=== PATIENT | female | born 1975 | race Hispanic/Latino ===

== ENCOUNTER 2021-07-01 13:09 | Outpatient (CLI) | payer BC, SELFPAY ==
--- NOTE | ~2021-07-01 | XR_ITS ---
XR thoracic spine 3V 07/01/2021 14:01 Indication: Back pain Procedure: 3 views thoracic spine Comparison: No prior studies for comparison. Findings: No fracture, subluxation or dislocation. Normal thoracic alignment. No paraspinal soft tiss ue abnormality. Pedicles intact. There is mild multilevel spondylosis. Impression: 1: Mild thoracic spondylosis. Reviewed, dictated and finalized at location A. Impression: 1: Mild thoracic spondylosis.
--- NOTE | ~2021-07-01 | XR_ITS ---
XR cervical spine 4-5V INDICATION: Neck pain TECHNIQUE: 5 views of the cervical spine. FINDINGS: No prior studies for comparison. The cervical spine is visualized to the cervicothoracic junction. There is no prevertebral soft tiss ue swelling, listhesis, or loss of vertebral body height. Intervertebral disc spaces are normal. Th e osseous central canal is patent. No displaced cervical spine fractures are identified. IMPRESSION: 1. No acute osseous abnormality of the cervical spine. Reviewed, dictated and finalized at location A.
--- NOTE | ~2021-07-01 | XR_ITS ---
XR lumbar spine 2-3V 07/01/2021 14:01 Indication: Back pain Procedure: 3 views lumbar spine Comparison: No prior studies for comparison. Findings: No fracture, subluxation or dislocation. Vertebral body heights are maintained. No evidence for spondylolysis or spondylolisthesis. There is mild lower lumbar facet perch atrophy. Sacral davis en are symmetric. Impression: 1: Mild thoracic spondylosis. Reviewed, dictated and finalized at location A. Impression: 1: Mild thoracic spondylosis.
== END 2021-07-01 13:10 | disposition home or self-care (01) ==
LOC: ANHIMG 13:15
PROVIDERS: PCP Family Medicine; Visit Provider Family Medicine
DX: M54.2 Cervicalgia (principal); M54.50 Low back pain, unspecified; M47.894 Other spondylosis, thoracic region
CPT/HCPCS: 72050; 72072; 72100

== ENCOUNTER → 2021-10-09 07:28 | Outpatient (CLI) | payer BC, SELFPAY ==
--- NOTE | ~2021-10-09 | XR_ITS ---
EXAMINATION: XR ankle RT min 3V, XR foot RT min 3V EXAM DATE: 10/09/2021 08:02 INDICATION: Right foot pain , right ankle pain. h/o fall on Sep 29, c/o initial foot and ankle swelli ng on dorsal foot, med and lat ankle, it has gotten better but pt still has some pain and swelling on dorsal foot and lat ankle, pain radiates up to mid lower leg, h/o lat foot fracture 20 yrs ago. TECHNIQUE: Right foot dorsoplantar, lateral and oblique projections obtained and reviewed. Right ank le frontal, lateral and oblique projections obtained and reviewed. There is no prior study for gonzalo aviles. FINDINGS: There is acute appearing right 5th metatarsal neck fracture without callus formation. This is essentially nondisplaced and in near-anatomic alignment. The right ankle mortise appears intact. Small calcaneal spur posteriorly. Mild midfoot osteoarthritis. IMPRESSION: Acute right 5th metatarsal neck fracture. Unremarkable ankle. I discussed fracture with nurse Sprague in the office of the ordering clinician Nedra Foster, COMPRESSOR ASSEMBLER at 10/09/2021 10:38 PLANT OPERATIONS MANAGER. Reviewed, dictated and finalized at location A. T OPERATIONS MANAGER IMPRESSION: Acute right 5th metatarsal neck fracture. Unremarkable ankle. I discussed fracture with nurse Sprague in the office of the ordering clinician Jacinta Foster, COMPRESSOR ASSEMBLER at 10/09/2021 10:38 PLANT OPERATIONS MANAGER.
== END ==
PROVIDERS: PCP Nurse Practitioner Family; Visit Provider Nurse Practitioner Family
DX: M79.671 Pain in right foot (principal); S92.351A Displaced fracture of fifth metatarsal bone, right foot, initial encounter for closed fracture
CPT/HCPCS: 73610; 73630

== ENCOUNTER → 2021-11-09 08:30 | Outpatient (CLI) | payer BC, SELFPAY ==
--- NOTE | ~2021-11-09 | XR_ITS ---
XR foot RT standing 2V DATE: 11/09/2021 09:18 INDICATION: Right foot fracture TECHNIQUE: Standing AP and lateral views COMPARISON: 10/09/2021 right foot FINDINGS: There is healed mild fracture deformity at the neck of the fifth metatarsal bone. 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 Posterior calcaneal enthesopathy. IMPRESSION: Healed fracture and neck of fifth metatarsal bone Tarsal coalition Posterior calcaneal enthesopathy Reviewed, dictated and finalized at location A. ORATIVE ART EMBALMER
== END ==
DX: S92.901D Unspecified fracture of right foot, subsequent encounter for fracture with routine healing (principal)
CPT/HCPCS: 73620

== ENCOUNTER 2022-01-09 12:20 | Outpatient (CLI) | payer BC, SELFPAY ==
--- NOTE | 2022-01-09 12:30 | ECG_ITS ---
Measurements Intervals Howe Rate: 82 P: 34 WV: 143 QRS: 13 QRSD: 93 T: 50 QT: 397 QTc: 465 Interpretive Statements SINUS RHYTHM NORMAL ECG INTERPRETATION BASED ON A DEFAULT AGE OF 40 YEARS NO PREVIOUS ECG AVAILABLE FOR COMPARISON Electronically Signed On 01-10-2022 15:43:27 CDT by Blayne Bhakta M.D.
[2022-01-09 12:51] LABS: Basophils Absolute Auto 0.1 K/mm3 (0.0-0.1); Basophils Percent Auto 0.6 % (0.2-1.2); Eosinophils Absolute Auto 0.8 K/mm3 (0-0.3); Hemoglobin 12.3 g/dL (12.0-15.0); Immature Granulocyte Absolute 0.01 K/mm3 (0.00-0.031); Immature Granulocyte Percent A 0.1 % (0-0.5); Lymphocytes Absolute Auto 2.27 K/mm3 (0.9-3.2); Lymphocytes Percent Auto 29.2 % (18.3-44.2); Mean Corpuscular HGB Conc 32.4 g/dl (32-36); Mean Corpuscular Hemoglobin 27.3 pg (26-34); Mean Corpuscular Volume 84.4 fl (80-100); Mean Platelet Volume 9.2 fl (7.4-10.4); Monocytes Absolute Auto 0.9 K/mm3 (0.1-0.6); Monocytes Percent Auto 11.6 % (2.6-8.5); Neutrophils Absolute Auto 3.8 K/mm3 (1.3-6.7); Neutrophils Percent Auto 48.5 % (45.5-73.1); Platelet Count Result 238 k/mm3 (150-375); White Blood Count 7.8 K/mm3 (4.5-10.0)
== END 2022-01-09 12:21 | disposition home or self-care (01) ==
LOC: ANHSURGERY 12:24
PROVIDERS: PCP Pediatrics; Visit Provider Obstetrics & Gynecology
DX: Z01.818 Encounter for other preprocedural examination (principal); D21.9 Benign neoplasm of connective and other soft tissue, unspecified; I10 Essential (primary) hypertension
CPT/HCPCS: 36415; 85025; 86850; 86900; 86901; 93005

== ENCOUNTER 2022-01-12 01:00 | Day surgery (SDC) | payer BC, SELFPAY ==
[2022-01-08 13:09] VITALS: BMI 39.1
--- NOTE | 2022-01-08 13:32 | PC.NURSE ---
Report to the Outpatient Waiting Room, entrance under the green pavilion located off [facility], at time _0600_ on date _01/12/22_. OR Time: _0730_. - You and your visitor will be asked a series of questions to screen for COVID 19 for your protection. - A mask is required within the hospital. One visitor will be allowed to accompany the patient into the hospital. Patients visitor will be instructed to remain with patient at all times or leave the building. VISITING HOURS 10AM-8PM Preoperative COVID Testing Requirements: NONE Patients may have clear liquids (water, carbonated beverages, clear teas, apple juice) until 3 hours prior to surgery (0430 AM) with a maximum of 20 ounces. - No food from midnight until time of surgery Take the following medications with a SIP of water the morning of surgery: __NONE__ Medications to discontinue per physician __NONE_, Date to take last dose Please no make-up, nail syriac, hairspray, perfume, deodorant, or body powder the day of surgery. No jewelry (including any body piercings) or valuables the day of surgery, leave them at home. Please take a shower or bath the night before, or the morning of, surgery with an antibacterial soap. Wear comfortable, loose fitting clothing. - Jewelry must be removed prior to entering the operating room. Rings and piercings that are not removed may be cut off. - The hospital will not accept responsibility for valuables. - Please leave all valuables, including medications, at home the day of surgery. If you are going home after surgery, a licensed otr flatbed driver must drive you home. - NO public transportation without another adult. - We recommend that an adult stay with you for 24 hours following discharge. - We also recommend that you do not drive, make important decision, drink alcoholic beverages, or take any drugs that were not prescribed by your health care provider for at least 24 hours after your discharge time. Follow any additional instructions given to you from your surgeon. Telephone instructions given to ____PT and asked if any additional questions and then verbalized understanding. Patient advised to call surgeon office or pre surgery nurse liaison [phone] if any additional questions.
--- NOTE | 2022-01-09 07:53 | PM.IMHP ---
H&P: HPI History of Present Illness Date/Time: 01/09/22 07:53 46-year-old female 3 para 3 admitted for robotic total vaginal hysterectomy salpingectomy she has heavy periods with known enlarged fibroid uterus ultrasound proved this to be the case risks of this procedure including but not exclusive of , aspiration pneumonia, bleeding, transfusion, perforation injury to bowel, bladder, ureters other internal. She received the [employer] handout entitled hysterectomy as well as the de Roxanne handout. She had questions answered asked to proceed Chief Complaint: Enlarged uterus with pelvic pain Review of Systems Review of Systems: All systems reviewed & are unremarkable except as noted in HPI and below PMFSH Family History Family History Mother Acute myocardial infarction Other Family history of allergic disorder Family history of malignant neoplasm Hypertension Social History Social History Smoking status: Never smoker Second hand tobacco smoke exposure: No Alcohol intake: current Alcohol use details: STATES VERY RARE - [place] Substance use: never Substance use type: does not use Spiritual care concerns: No Meds Home Medications and Allergies Home Medications Medication Instructions Recorded Confirmed Type amoxicillin 875 mg PO Q12H 01/08/22 01/08/22 History lisinopril 10 mg HS 01/08/22 01/08/22 History montelukast 10 mg PO HS 01/08/22 01/08/22 History Allergies Allergy/AdvReac Type Severity Reaction Status Date / Time No Known Allergies Allergy Unverified 01/08/22 13:05 Exam Const: General: no acute distress Eyes: General: appearance normal, both eyes and all related structures Neck: Neck: supple and no JVD Thyroid: thyroid normal Resp: Effort & Inspection: normal respiratory effort Auscultation: clear to auscultation bilaterally Cardio: Rate: regular rate Rhythm: regular rhythm GI: Inspection: non-distended GI Palp: Yes Soft to palpation, No Tenderness to palpation present (GI) and No Guarding due to palpation present (GI) Auscultation: normal bowel sounds : External Female Exam: normal external appearance Speculum Exam - Vagina: normal appearance of the vagina Speculum Exam - Cervix: normal appearance of the cervix Bimanual exam- vagina & uterus: enlarged Bimanual Exam- Adnexa, other: normal adnexae Skin: General skin exam: no rashes or lesions noted Extrem: General: normal to inspection and no edema Psych: Mental Status: mental status grossly normal Affect: normal affect Assessment and Plan Additional Plan Impression: Uterine fibroids pelvic pain Plan: Robotic total vaginal hysterectomy and bilateral salpingectomy
[2022-01-12] VITALS (10 sets, daily range): BP systolic 107–137; BP diastolic 69–99; PULSE 61–98; RESP 12–20; TEMP 36.4–36.8; O2SAT 97–100; BMI 38.9
[2022-01-12] MEDS: KETOROLAC 15 MG/ML VIAL (*BKC) IV PUSH (07:00)
[2022-01-12] MEDS: LACTATED RINGERS 1,000 ML 30 ML IV CONT ×2 (07:00→08:56)
[2022-01-12] MEDS: ACETAMINOPHEN 500 MG TABLET 1000 MG PO (07:00)
--- NOTE | 2022-01-12 07:08 | WPDHPUPDATE1 ---
History and Physical Update Update Date/Time: 01/12/22 07:08 History and Physical has been reviewed, including an updated exam of the patient. There are NO changes in the patient's condition. Risks, benefits, and alternatives have been discussed and questions answered. Patient agrees to proceed with procedure.
--- NOTE | 2022-01-12 07:14 | WPDANESEPPF ---
Anes - Initial Pre Proc Eval Procedure: Operation Date: 01/12/22 07:30 Proposed Procedures p Robotic Assisted Total Vaginal Hysterectomy with Bilateral Salpingectomy - Wisam Lo MD Date/Time: 01/12/22 07:14 Surgeon: Wisam Lo MD Pre Op Diagnosis: fibroids, pain, heavy bleeding Patient Data Age: 46 Gender: F Height: 1.52 m Weight: 90.9 kg Allergies Allergy/AdvReac Type Severity Reaction Status Date / Time No Known Allergies Allergy Verified 01/12/22 06:44 Home Medications Medication Instructions Recorded Confirmed Type amoxicillin 875 mg PO Q12H 01/08/22 01/08/22 History lisinopril 10 mg HS 01/08/22 01/08/22 History montelukast 10 mg PO HS 01/08/22 01/08/22 History hydrocodone-acetaminophen 1 tablet PO Q4H PRN #30 tablet 01/12/22 Rx Patient hx anesthesia problems: none Family hx anesthesia problems: none Results Review: All pre-operative results and documents have been reviewed as part of the pre-operative evaluation. [facility] Past Medical History Medical History (Updated 01/12/22 @ 07:14 by iWsam Meier MD) HTN (hypertension) Morbid obesity Family History Family History Mother Acute myocardial infarction Other Family history of allergic disorder Family history of malignant neoplasm Hypertension Social History Social History Smoking status: Never smoker Second hand tobacco smoke exposure: No Alcohol intake: current Alcohol use details: STATES VERY RARE - [place] Substance use: never Substance use type: does not use Living arrangements: with family Spiritual care concerns: No Anes - Eval Final PreProcedure Day of Procedure 01/12/22 07:14 Patient weight: morbidly obese Heart: regular rate and rhythm Lungs: clear to auscultation Airway: Mallampati scale class II Neurological: alert and oriented Last oral intake: >/= 8 hours ASA classification: III Emergent: no Anesthetic plan: proceed Anesthesia type and monitoring: general GIVS and standard monitoring Results Review: All pre-operative results and documents have been reviewed as part of the pre-operative evaluation. Informed Consent: The patient's anesthetic plan and its attendant risks and benefits were discussed with the patient/family/POA. Questions were solicited and answers provided to the satisfaction of the patient/family/POA.
[2022-01-12] MEDS: ceFAZolin 2 GM/D5W 50 ML 2 GM/50 ML BAG IVPB (07:26)
--- NOTE | 2022-01-12 08:43 | W.PM.PROC2 ---
Procedure Note - Detailed Date of Procedure 01/12/22 Pre-op Diagnosis fibroids, pain, heavy bleeding Post-op Diagnosis Same Procedure Performed Robotic total vaginal hysterectomy and bilateral salpingectomies Surgeon Wisam Lo MD Anesthesia General Indications is a 46-year-old female with symptomatic uterine fibroids Findings markedly enlarged uterus. Normal-appearing ovaries with a small simple ovarian cyst on the left. Description of Procedure The patient is prepped draped in normal sterile fashion placed in the dorsal lithotomy position. Under excellent general trach anesthesia weighted speculum was placed in placed posterior fornix vagina. Anterior lip of the cervix grasped with a single-tooth tenaculum and the uterus sounded to 10cm. Serial dilatation with fragmented dilators performed followed by passage of the 10. WARNER and the 4. Cold cup. A 16 Prydeinig catheter was placed in the bladder and drained clear urine. The weighted speculum was removed and the gloves were changed. A supraumbilical incision made in the Veress needle passed in the abdomen. Abdomen filled with CO2 gas [id number]. The 8mm trocar advanced in the abdomen downside visualized no injury seen. Patient placed in Trendelenburg and a right and left lateral quadrant incisions were made. 8Mm trocars were advanced under direct visualization assuring no injury. An 8mm trocar was advanced in the right upper quadrant under direct visualization assuring no injury. The robot was docked Attention was turned to the adoption counselor. The left round ligament was grasped, burned, cut. Anteriorly a bladder flap was formed by sharply dissecting the peritoneum and reflecting the bladder caudally away from the uterus and cervix to the opposite round ligament which was clamped, burned, cut. Next the left fallopian tube was teased away from the ovarian complex and sharply dissected with monopolar cautery and left attached at its origin at the uterus. This was repeated on the contralateral side removing the right fallopian tube. The left utero-ovarian ligament was then skeletonized clamped, burned, cut and brought to the level of previously cut round ligament conserving the left ovary. There was a large ovarian cyst in that was drained of clear fluid in suction. In like fashion conserving the right ovary the utero-ovarian ligament was clamped, burned, cut and brought the level previous cut round ligament. The left cardinal broad ligaments were then serially skeletonized sliding along the cervix and uterus clamping burning cutting until the uterine vessels could be seen on the left. These were large and tortuous and were clamped, burned, cut. In like fashion the cardinal broad ligaments on the right were serially skeletonized. They were clamped, burned, cut and brought down to the level uterine vessels on the right. These were individually clamped, burned, cut. Excellent blanching the uterus was seen and a colpotomy incision was made in the cervix uterus and tubes removed through the vagina. Hemostasis was assured blood loss estimated [id number]. The vagina was closed with continuous running 0V lock from lateral edge to lateral edge and back to the midline. Irrigation undertaken to clear blood loss estimated at50cc. The gas removed from the abdomen. The trocars removed after gas removed from the abdomen. The robot undocked in the trocars removed. The incisions closed with 4 Monocryl and glue. Patient was awakened and went to recovery in satisfactory condition. All sponge, needle, instrument counts were correct. There were no immediate complications noted Estimated Blood Loss 50 Drains No Packing No Pathology Yes Complications No immediate complications Condition Stable Disposition PACU
[2022-01-12] MEDS: fentaNYL CITRATE INJ (*CRX) 100 MCG/2 ML VIAL 25 MCG IV PUSH ×6 (09:14→10:05)
[2022-01-12] MEDS: DEXTROSE 5%/LACTATED RINGERS 1,000 ML 125 ML IV CONT (10:50)
[2022-01-12] MEDS: KETOROLAC 30 MG/ML VIAL (*BKC) IV PUSH (10:51)
[2022-01-12] MEDS: HYDROcodone/acetaminophen (*CRX) 10-325 MG TABLET 1 TAB PO ×2 (13:50→19:37)
[2022-01-12] MEDS: DOCUSATE SODIUM 100 MG CAPSULE PO (13:50)
[2022-01-12] MEDS: HYDROcodone/acetaminophen (*CRX) 5-325 MG TABLET 1 TAB PO (23:38)
[2022-01-12] MEDS: IBUPROFEN 600 MG TABLET PO (23:39)
[2022-01-13 03:45] VITALS: BP 117/79; PULSE 78; RESP 20; TEMP 36.6; O2SAT 99
[2022-01-13 05:26] LABS: Basophils Percent Auto 0.2 % (0.2-1.2); Eosinophils Absolute Auto 0.1 K/mm3 (0-0.3); Eosinophils Percent Auto 0.6 % (0-4.4); Hematocrit 33.9 % (37.0-47.0); Hemoglobin 11.2 g/dL (12.0-15.0); Immature Granulocyte Absolute 0.02 K/mm3 (0.00-0.031); Immature Granulocyte Percent A 0.2 % (0-0.5); Lymphocytes Absolute Auto 1.49 K/mm3 (0.9-3.2); Mean Corpuscular Volume 81.7 fl (80-100); Mean Platelet Volume 9.8 fl (7.4-10.4); Monocytes Absolute Auto 0.7 K/mm3 (0.1-0.6); Monocytes Percent Auto 7.4 % (2.6-8.5); Neutrophils Absolute Auto 6.6 K/mm3 (1.3-6.7); Neutrophils Percent Auto 74.6 % (45.5-73.1); Platelet Count Result 270 k/mm3 (150-375); Red Blood Count 4.15 M/mm3 (4.2-5.4); Red Cell Distribution Width 12.5 % (11.5-14.5); White Blood Count 8.8 K/mm3 (4.5-10.0)
--- NOTE | 2022-01-13 06:33 | PM.DS ---
DS: Admitting Diagnosis Discharge Date 01/13/2022 Admitting Diagnosis enlarged uterus/ bleeding refractory to medical therapy/pelvic pain DS: Summary Hospital Course Hospital Course: patient was admitted for robotic total vaginectomy bilateral salpingectomy on 01/12/2022. Please see the operative report for both the heels which was uncomplicated. Her hospital course was unremarkable she remained afebrile. She was up, voiding without difficulty, ambulating, generally without complaints. Time Spent with Patient Time attestation: Total time spent providing and/or coordinating discharge services: Exam Const: General: no acute distress Eyes: General: appearance normal, both eyes and all related structures Neck: Neck: supple and no JVD Thyroid: thyroid normal Resp: Effort & Inspection: normal respiratory effort Auscultation: clear to auscultation bilaterally Cardio: Rate: regular rate Rhythm: regular rhythm GI: Inspection: non-distended GI Palp: Yes Soft to palpation, No Tenderness to palpation present (GI) and No Guarding due to palpation present (GI) Auscultation: normal bowel sounds : General: Yes bladder normal to palpation External Female Exam: normal external appearance Speculum Exam - Vagina: normal vaginal discharge and No vaginal bleeding Speculum Exam - Cervix: nontender Bimanual exam- vagina & uterus: bladder normal to palpation and No Cervical tenderness present OB/external & speculum: No vaginal bleeding Skin: General skin exam: no rashes or lesions noted Extrem: General: normal to inspection and no edema Psych: Mental Status: mental status grossly normal Affect: normal affect DS: Data Data Completed and Pending Pending studies at discharge: Pending at discharge 01/12/22 08:19 Surgical [PTH] Routine Labs on day of discharge: Labs from last 24 hours 01/13/22 03:48 WBC 8.8 RBC 4.15 L Hgb 11.2 L Hct 33.9 L MCV 81.7 MCH 27.0 MCHC 33.0 RDW 12.5 Plt Count 270 MPV 9.8 Immature Gran % (Auto) 0.2 Neut % (Auto) 74.6 H Lymph % (Auto) 17.0 L [place] % (Auto) 7.4 Eos % (Auto) 0.6 Baso % (Auto) 0.2 Lymph # (Auto) 1.49 [place] # (Auto) 0.7 H Eos # (Auto) 0.1 Baso # (Auto) 0.0 Abs Immat Gran (auto) 0.02 Absolute Neuts (auto) 6.6 Absolute Nucleated RBC 0.0 Nucleated RBC % 0.0 Discharge Plan Discharge Patient Disposition: Home, Self-Care Stand Alone Forms: General Discharge Instructions Follow-up/Referrals: Wisam Diaz MD [Physician] - Discharge Medications: New hydrocodone-acetaminophen 5-325 mg tablet 1 tablet PO Q4H PRN (Reason: pain) Qty: 30 RF: 0 No Action amoxicillin 875 mg Tablet 875 mg PO Q12H RF: 0 lisinopril 10 mg tablet 10 mg HS RF: 0 montelukast 10 mg Tablet 10 mg PO HS RF: 0
--- NOTE | 2022-01-13 06:35 | PM.GYNPNOP ---
RESEARCH AND DEVELOPMENT DIRECTOR - A/P Postoperative Procedures: Procedures Operation Date: 01/12/22 07:30 Actual Procedure Side Surgeon p Robotic Assisted Total Vaginal Hysterectomy with Bilateral Salpingectomy Not Applicable Wisam Lo MD Postoperative day: 1 Postoperative status: doing well Postoperative plan: routine post-op care, advance diet and discharge Time Spent With Patient Time: Total time spent is greater than 50% in coordination of care (as documented) at patient's floor/unit and/or counseling patient: Time with patient: less than 15 minutes RESEARCH AND DEVELOPMENT DIRECTOR- PN:Subj Post-Op Subjective Date/time seen: 01/13/22 06:35 Subjective: patient has no complaints, patient desires discharge and pain is well controlled Review of Systems Review of Systems: All systems reviewed & are unremarkable except as noted in HPI and below Exam Const: General: no acute distress Eyes: General: appearance normal, both eyes and all related structures Neck: Neck: supple and no JVD Thyroid: thyroid normal Resp: Effort & Inspection: normal respiratory effort Auscultation: clear to auscultation bilaterally Cardio: Rate: regular rate Rhythm: regular rhythm GI: Inspection: non-distended GI Palp: Yes Soft to palpation, No Tenderness to palpation present (GI) and No Guarding due to palpation present (GI) Auscultation: normal bowel sounds Skin: General skin exam: no rashes or lesions noted Extrem: General: normal to inspection and no edema Psych: Mental Status: mental status grossly normal Affect: normal affect RESEARCH AND DEVELOPMENT DIRECTOR - PN: Obj Data Vital Signs Vital Signs: Vital Signs - 24 hr 01/12/22 07:12 01/12/22 08:56 01/12/22 09:15 Temperature 97.5 F L 97.6 F Pulse Rate 82 71 61 Respiratory Rate 14 16 12 Blood Pressure 134/85 131/71 124/73 Pulse Oximetry 100 100 100 01/12/22 09:30 01/12/22 09:46 01/12/22 10:00 Temperature Pulse Rate 86 84 70 Respiratory Rate 14 14 14 Blood Pressure 130/99 H 118/74 107/80 Pulse Oximetry 100 100 97 01/12/22 10:30 01/12/22 17:30 01/12/22 19:30 Temperature 98.3 F 97.7 F Pulse Rate 76 76 82 Respiratory Rate 20 20 18 Blood Pressure 124/69 129/75 Pulse Oximetry 100 100 99 01/12/22 23:25 Temperature 97.9 F Pulse Rate 98 Respiratory Rate 18 Blood Pressure 137/80 Pulse Oximetry 98 Intake/Output Intake/Output: Intake & Output 01/10/22 01/11/22 01/12/22 01/13/22 23:59 23:59 23:59 23:59 Intake Total 2450 Output Total 2320 Balance 130 Meds/Results Medications: Active Medications Generic Name Dose Route Start Last Admin Trade Name Freq PRN Reason Stop Dose Admin Hydrocodone Bitart/Acetaminophen 1 tab 01/12/22 10:20 01/12/22 23:38 Hydrocodone/Acetaminophen (*Crx) 5-325 Mg Tablet PO 1 tab Q3H PRN Administration Pain Rated 5 or Less Hydrocodone Bitart/Acetaminophen 1 tab 01/12/22 10:20 01/12/22 19:37 Hydrocodone/Acetaminophen (*Crx) 10-325 Mg Tablet PO 1 tab Q3H PRN Administration Pain Rated 6 or Greater Docusate Sodium 100 mg 01/12/22 10:20 01/12/22 18:14 Docusate Sodium 100 Mg Capsule PO Not Given BID JEREMY Enoxaparin Sodium 40 mg 01/12/22 10:20 01/12/22 18:12 Enoxaparin 40 Mg/0.4 Ml Syringe SUB-Q Not Given DAILY JEREMY Dextrose/Lactated Ringer's 1,000 mls @ 125 mls/hr 01/12/22 10:20 01/12/22 10:50 Dextrose 5%/Lactated Ringers IV CONT 125 mls/hr .Q8H JEREMY Administration Ibuprofen 600 mg 01/12/22 10:20 01/12/22 23:39 Ibuprofen 600 Mg Tablet PO 600 mg Q6H PRN Administration Cramping Ketorolac Tromethamine 30 mg 01/12/22 10:20 01/12/22 10:51 Ketorolac 30 Mg/Ml Vial (*Bkc) IV PUSH 01/17/22 10:19 30 mg Q6H PRN Administration Pain Rated 4-6 Naloxone HCl 0.1 mg 01/12/22 10:20 Naloxone Hcl 0.4 Mg/Ml Vial IV PUSH Q2M PRN Respiratory rate less than 10 Ondansetron HCl 4 mg 01/12/22 10:20 Ondansetron Inj 4 Mg/2 Ml Vial IV PUSH Q6H PRN Nausea And Vomiting Simethicone
[2022-01-13 07:30] VITALS: BP 122/79; PULSE 75; RESP 16; TEMP 36.8; O2SAT 100
--- NOTE | 2022-01-13 07:36 | WPDANESPN ---
Anes - Prog Note Post-Op Date/Time: 01/13/22 07:36 Cardiovascular status: normal Respiratory status: normal Airway patency: baseline Mental status: baseline Post-Op hydration status: normal Vital Signs: Last Vital Signs Temp 36.6 C 01/13/22 03:45 Pulse 78 01/13/22 03:45 Resp 20 01/13/22 03:45 BP 117/79 01/13/22 03:45 Pulse Ox 99 01/13/22 03:45 Pain Score (VAS): 3 I/O: Intake & Output 01/12/22 01/12/22 01/13/22 15:59 23:59 07:59 Intake Total 350 2100 600 Output Total 70 2250 450 Balance 280 -150 150 Laboratory Tests 01/13/22 03:48 01/13/22 03:48 WBC 8.8 RBC 4.15 L Hgb 11.2 L Hct 33.9 L MCV 81.7 MCH 27.0 MCHC 33.0 RDW 12.5 Plt Count 270 MPV 9.8 Immature Gran % (Auto) 0.2 Neut % (Auto) 74.6 H Lymph % (Auto) 17.0 L [place] % (Auto) 7.4 Eos % (Auto) 0.6 Baso % (Auto) 0.2 Lymph # (Auto) 1.49 [place] # (Auto) 0.7 H Eos # (Auto) 0.1 Baso # (Auto) 0.0 Abs Immat Gran (auto) 0.02 Absolute Neuts (auto) 6.6 Absolute Nucleated RBC 0.0 Nucleated RBC % 0.0 Post-procedural complaints: none Patient Feedback: Patient satisfied with anesthetic care.
[2022-01-13] MEDS: IBUPROFEN 600 MG TABLET PO (07:53)
[2022-01-13] MEDS: DOCUSATE SODIUM 100 MG CAPSULE PO (07:53)
[2022-01-13] MEDS: ENOXAPARIN 40 MG/0.4 ML SYRINGE SUB-Q (07:53)
[2022-01-13] MEDS: HYDROcodone/acetaminophen (*CRX) 5-325 MG TABLET 1 TAB PO (09:44)
== END 2022-01-13 11:00 | disposition home or self-care (01) ==
LOC: ANHSURGERY 07:09 → ANHOB2 10:23
PROVIDERS: PCP Pediatrics; Visit Provider Obstetrics & Gynecology
PROC: (CPT 58552; principal; 2022-01-12 07:30)
DX: D25.0 Submucous leiomyoma of uterus (principal); D25.1 Intramural leiomyoma of uterus; D25.2 Subserosal leiomyoma of uterus; N80.0 Endometriosis of uterus; N83.8 Other noninflammatory disorders of ovary, fallopian tube and broad ligament; N73.6 Female pelvic peritoneal adhesions (postinfective); R10.2 Pelvic and perineal pain; N93.9 Abnormal uterine and vaginal bleeding, unspecified; I10 Essential (primary) hypertension; E66.01 Morbid (severe) obesity due to excess calories; Z68.39 Body mass index [BMI] 39.0-39.9, adult
CPT/HCPCS: 58552; S2900; 36415; 85025; 88307; 99199; A9270; J0330; J0690; J1100; J1650; J1885; J2250; J2270; J2405; J2704; J3010; J7030; J7120; J7121

== ENCOUNTER 2023-05-03 03:39 | Day surgery (SDC) | payer BC, SELFPAY ==
[2023-04-25 14:19] VITALS: BMI 37.2
[2023-05-03 07:40] VITALS: BP 145/85; PULSE 84; RESP 16; TEMP 36.6; O2SAT 100; BMI 36.2
[2023-05-03] MEDS: LACTATED RINGERS 1,000 ML 150 ML IV CONT (07:53)
[2023-05-03 07:54] LABS: Glucose Point of Care 87 mg/dl (65-105)
--- NOTE | 2023-05-03 08:18 | P.PNAN_ITS ---
Anes - Initial Pre Proc Eval Procedure: Operation Date: 05/03/23 08:30 Proposed Procedures p Screening Colonoscopy - Chapin Lazaro MD Date/Time: 05/03/23 08:18 Surgeon: Chapin Lazaro MD Pre Op Diagnosis: neoplasm screening Patient Data Age: 47 Gender: F Height: 1.52 m Weight: 84.2 kg Last Vital Signs Temp 97.8 F 05/03/23 07:40 Pulse 84 05/03/23 07:40 Resp 16 05/03/23 07:40 BP 145/85 H 05/03/23 07:40 Pulse Ox 100 05/03/23 07:40 O2 Del Method Room Air 05/03/23 07:40 Allergies Allergy/AdvReac Type Severity Reaction Status Date / Time No Known Allergies Allergy Verified 05/03/23 07:37 Home Medications Medication Instructions Recorded Confirmed Type lisinopril 10 mg tablet 10 mg HS 01/08/22 05/03/23 History montelukast 10 mg tablet 10 mg PO HS 01/08/22 05/03/23 History metformin 500 mg tablet,extended 500 mg PO BID 04/25/23 05/03/23 History release 24 hr multivit with minerals-iron 18 1 tablet PO DAILY 04/25/23 05/03/23 History mg-folic ac 400 mcg-vit K 25 mcg tablet (Adults Multivitamin) semaglutide 0.25 mg or 0.5 mg (2 0.25 mg subcut WEEKLY 04/25/23 05/03/23 History mg/3 mL) subcutaneous pen injector (Ozempic) Laboratory Tests 05/03/23 07:48 POC Capillary Glucose 87 mg/dl (65-105) Patient hx anesthesia problems: none Family hx anesthesia problems: none Results Review: All pre-operative results and documents have been reviewed as part of the pre- operative evaluation. [facility] Past Medical History Medical History (Updated 01/12/22 @ 07:14 by Wisam Meier MD) HTN (hypertension) Morbid obesity Family History Family History Mother Acute myocardial infarction Other Family history of allergic disorder Family history of malignant neoplasm Hypertension Social History Social History Smoking status: Never smoker Second hand tobacco smoke exposure: No Alcohol intake: current Alcohol use details: rare use Substance use: never Substance use type: does not use Living arrangements: with family Spiritual care concerns: No Anes - Eval Final PreProcedure Day of Procedure 05/03/23 08:18 Patient weight: obese Heart: regular rate and rhythm Lungs: clear to auscultation Airway: Mallampati scale class II Neurological: alert and oriented Last oral intake: >/= 8 hours ASA classification: III Emergent: no Anesthetic plan: proceed Anesthesia type and monitoring: general GIVS and standard monitoring Results Review: All pre-operative results and documents have been reviewed as part of the pre- operative evaluation. Informed Consent: The patient's anesthetic plan and its attendant risks and benefits were discussed with the patient/family/POA. Questions were solicited and answers provided to the satisfaction of the patient/family/POA.
--- NOTE | 2023-05-03 08:19 | PM.HPGS ---
History of Present Illness History of Present Illness Consent: Risks, benefits, and alternatives have been discussed and questions answered. Patient agrees to proceed with procedure. Chief complaint: neoplasm screening Narrative: Etta Powers is a 47 year old female Presents for screening colonoscopy. Patient's current weight appetite and bowel movements are normal. Patient denies abdominal pain. she has had no bleeding. Family history noncontributory. Review of Systems Review of Systems: Review of systems noncontributory. [facility] Past Medical History Medical History (Updated 05/03/23 @ 08:20 by Chapin Lazaro MD) HTN (hypertension) Morbid obesity Family History Family History Mother Acute myocardial infarction Other Family history of allergic disorder Family history of malignant neoplasm Hypertension Social History Social History Smoking status: Never smoker Second hand tobacco smoke exposure: No Alcohol intake: current Alcohol use details: rare use Substance use: never Substance use type: does not use Living arrangements: with family Spiritual care concerns: No Meds Home Medications and Allergies Home Medications Medication Instructions Recorded Confirmed Type lisinopril 10 mg tablet 10 mg HS 01/08/22 05/03/23 History montelukast 10 mg tablet 10 mg PO HS 01/08/22 05/03/23 History metformin 500 mg tablet,extended 500 mg PO BID 04/25/23 05/03/23 History release 24 hr multivit with minerals-iron 18 1 tablet PO DAILY 04/25/23 05/03/23 History mg-folic ac 400 mcg-vit K 25 mcg tablet (Adults Multivitamin) semaglutide 0.25 mg or 0.5 mg (2 0.25 mg subcut WEEKLY 04/25/23 05/03/23 History mg/3 mL) subcutaneous pen injector (Ozempic) Allergies Allergy/AdvReac Type Severity Reaction Status Date / Time No Known Allergies Allergy Verified 05/03/23 07:37 Vital Signs Vital Signs - 24 hr 05/03/23 07:40 Temperature 97.8 F Pulse Rate 84 Respiratory Rate 16 Blood Pressure 145/85 H Pulse Oximetry 100 Oxygen Delivery Room Air Exam Narrative: Physical exam reveals patient to be alert. Vital signs stable. HEENT exam is unremarkable. Patient is anicteric. Lungs are clear to auscultation and percussion. Heart is without murmur or extra sounds. Abdomen bowel sounds are present soft nontender with no organomegaly. Digital external rectal exam is normal. Assessment and Plan Assessment and plan (1) Encounter for screening colonoscopy: Code(s): Z12.11 - Encounter for screening for malignant neoplasm of colon Status: Acute Assessment and Plan: Patient presents today for screening colonoscopy. She appears to be at average risk for colon polyps. Further recommendations may be given after endoscopy.
[2023-05-03 08:44] VITALS: BP 120/76; PULSE 85; RESP 16; O2SAT 100
[2023-05-03 08:54] VITALS: BP 117/80; PULSE 85; RESP 20; O2SAT 100
[2023-05-03 09:03] VITALS: BP 137/84; PULSE 82; RESP 20; O2SAT 100
== END 2023-05-03 09:08 | disposition home or self-care (01) ==
PROVIDERS: PCP Family Medicine; Visit Provider Internal Medicine Gastroenterology
PROC: 0DJD8ZZ Inspection of Lower Intestinal Tract, Via Natural or Artificial Opening Endoscopic (ICD-10-PCS; CPT 45378; principal; 2023-05-03 08:30)
DX: Z12.11 Encounter for screening for malignant neoplasm of colon (principal); K64.8 Other hemorrhoids; I10 Essential (primary) hypertension; E66.9 Obesity, unspecified; Z68.36 Body mass index [BMI] 36.0-36.9, adult; Z79.84 Long term (current) use of oral hypoglycemic drugs; Z79.899 Other long term (current) drug therapy
CPT/HCPCS: 45378; 82948; J2704; J7120

== ENCOUNTER → 2023-06-20 11:26 | Outpatient (CLI) | payer OTHER, SELFPAY ==
--- NOTE | ~2023-06-20 | XR_ITS ---
XR scoliosis survey DATE: 06/20/2023 12:09 INDICATION: Neck, thoracic and low back pain TECHNIQUE: Standing AP and lateral views of the cervical, thoracic and lumbar spine with breast shiel ds COMPARISON: 07/01/2021 cervical, thoracic and lumbar spine FINDINGS: Normal alignment of the cervical spine. No cervical fracture or dislocation or locked facet or prevertebral soft tissue swelling. Cervical interspaces are well preserved. Slight thoracic dextroscoliosis. Normal alignment of the thoracic spine. No fracture or dislocation or bone destruction. The thoracic pedicles are intact. There is minimal degenerative spurring of the thoracic spine. No paraspinal soft tissue thickening. Slight lumbar levoscoliosis. Normal alignment of the lumbar spine. No fracture or bone destruction. The lumbar pedicles are intact . Lumbar and lumbosacral spaces appear relatively well preserved. The sacroiliac joints are normal. Femoral heads are symmetric in height. IMPRESSION: Slight thoracic dextroscoliosis and slight lumbar levoscoliosis Minimal degenerative spurring of the thoracic spine Reviewed, dictated and finalized at [facility]. Reviewed, dictated and finalized at [facility].
== END ==
PROVIDERS: PCP Family Medicine; Visit Provider Family Medicine
DX: M54.2 Cervicalgia (principal); M54.50 Low back pain, unspecified; M54.6 Pain in thoracic spine; M41.84 Other forms of scoliosis, thoracic region; M41.86 Other forms of scoliosis, lumbar region; M77.8 Other enthesopathies, not elsewhere classified
CPT/HCPCS: 72082

== ENCOUNTER 2024-05-13 14:00 | Outpatient (CLI) | payer OTHER, SELFPAY ==
--- NOTE | ~2024-05-13 | MR_ITS ---
EXAMINATION: MR lumbar spine wo con DATE: 05/13/2024 14:40 INDICATION: Low back pain. Bilateral leg pain. TECHNIQUE: Magnetic resonance imaging (MRI) of the lumbar spine was performed without intravenous con trast. Sequences included sagittal T2-weighted FSE, sagittal T2-weighted FS FSE, sagittal T1-weighted FSE, and axial T2-weighted FSE. COMPARISON: Lumbar spine radiographs 07/01/2021 FINDINGS: Bone alignment is normal. Vertebral body heights and intervertebral disc heights are normal . There is a hemangioma in L4 vertebral body. The distal spinal cord signal intensity is normal. The conus medullaris is at T12-L1. The following disc levels are specifically discussed: L1-L2: The disc does not extend beyond the endplate margin. There is mild bilateral facet joint osteo arthritis. There is no neural foraminal stenosis. There is no central canal stenosis. L2-L3: The disc does not extend beyond the endplate margin. There is moderate right and mild left fac et joint osteoarthritis. There is no neural foraminal stenosis. There is no central canal stenosis. L3-L4: The disc does not extend beyond the endplate margin. There is severe bilateral facet joint ost eoarthritis. There is mild left neural foraminal stenosis. There is no central canal stenosis. L4-L5: The disc does not extend beyond the endplate margin. There is severe bilateral facet joint ost eoarthritis. There is mild bilateral neural foraminal stenosis. There is no central canal stenosis. L5-S1: The disc does not extend beyond the endplate margin. There is severe bilateral facet joint ost eoarthritis. There is no neural foraminal stenosis. There is no central canal stenosis. IMPRESSION: 1. Mild lumbar spondylosis. Reviewed, dictated and finalized at [facility]. IMPRESSION: 1. Mild lumbar spondylosis.
== END 2024-05-13 14:01 ==
LOC: MICIMG 14:03
PROVIDERS: PCP Family Medicine; Visit Provider Family Medicine
DX: M43.06 Spondylolysis, lumbar region (principal); R20.2 Paresthesia of skin
CPT/HCPCS: 72148

== ENCOUNTER 2024-07-15 14:39 | Outpatient (CLI) | payer OTHER, SELFPAY ==
--- NOTE | ~2024-07-15 | MM_ITS ---
EXAMINATION: MM screening atul BI w margaret HISTORY: Screening TECHNIQUE: Craniocaudal and mediolateral oblique 3-D tomosynthesis images were obtained and synthetic 2-D images were generated. CAD analysis was submitted and interpreted. COMPARISON: Comparison to multiple prior studies sequentially, with oldest reviewed study dated 05/27. BREAST PARENCHYMAL COMPOSITION: Dense: The breasts are extremely dense, which lowers the sensitivity of mammography. FINDINGS: There is no evidence of suspicious mass, calcification, or architectural distortion to sugg est malignancy in either breast. There has been no suspicious interval change. IMPRESSION: 1. No mammographic evidence of malignancy. 2. Recommend routine screening mammography in one year. BI-RADS Category 1: Negative Reviewed, dictated and finalized at [facility].
== END 2024-07-15 14:40 | disposition home or self-care (01) ==
LOC: MICIMG 14:40
PROVIDERS: PCP Family Medicine; Visit Provider Obstetrics & Gynecology
DX: Z12.31 Encounter for screening mammogram for malignant neoplasm of breast (principal)
CPT/HCPCS: 77063; 77067

== ENCOUNTER 2024-12-23 14:08 | Outpatient (CLI) | payer OTHER, SELFPAY ==
--- NOTE | ~2024-12-23 | CT_ITS ---
EXAMINATION: CT sinus wo con DATE: 12/23/2024 14:25 INDICATION: Chronic maxillary sinusitis TECHNIQUE: Computed tomography (CT) of the paranasal sinuses was performed without intravenous contra st. The dose-length product was 292.39 mGy-cm. Automated exposure control and iterative reconstructio n technique were employed. COMPARISON: None FINDINGS: There is an moderate mucosal thickening of the maxillary and ethmoid sinuses with air-fluid levels. There is leftward nasal septal deviation. There are bilateral joe bullosa. Both ostiomeat al units are occluded by soft tissue. Mastoids are pneumatized. IMPRESSION: 1. Moderate sinusitis, possibly acute superimposed on chronic sinus disease. Reviewed, dictated and finalized at [facility].
== END 2024-12-23 14:09 | disposition home or self-care (01) ==
LOC: MICIMG 14:10
PROVIDERS: PCP Family Medicine; Visit Provider Otolaryngology
DX: J32.0 Chronic maxillary sinusitis (principal); J32.2 Chronic ethmoidal sinusitis; J30.2 Other seasonal allergic rhinitis; J34.3 Hypertrophy of nasal turbinates
CPT/HCPCS: 70486